=== PATIENT | female | born 1995 | race Caucasian/White ===

== ENCOUNTER 2018-04-06 04:13 | Emergency (ER) | payer OTHER ==
--- NOTE | 2018-04-06 04:23 | EDPHY ---
H & P Stated Complaint: POS UTI/URGENCY,RETENTION,CLOTS Time Seen by Provider: 04/06/18 04:22 HPI/ROS: HPI CHIEF COMPLAINT: Possible UTI. HISTORY OF PRESENT ILLNESS: Patient very pleasant 22-year-old female she is otherwise healthy no significant medical history does not take any daily medications except control presents emergency room with 4 days of urinary frequency, urgency, urinary dysuria. No back pain, no fever, no vomiting. Denies being . Past Medical History: No significant medical history Past Surgical History: No significant surgical history Social History: Denies daily use drugs alcohol tobacco. Family History: Noncontributory ROS REVIEW OF SYSTEMS: A comprehensive 10 point review of systems is otherwise negative aside from elements mentioned in the history of present illness. Exam Constitutional triage nursing summary reviewed, vital signs reviewed, awake/ alert. Eyes normal conjunctivae and sclera, EOMI, PERRLA. HENT normal inspection, atraumatic, moist mucus membranes, no epistaxis, neck supple/ no meningismus, no raccoon eyes. Respiratory clear to auscultation bilaterally, normal breath sounds, no respiratory distress, no wheezing. Cardiovascular rate normal, regular rhythm, no murmur, no edema, distal pulses normal. Gastrointestinal soft, non-tender, no rebound, no guarding, normal bowel sounds, no distension, no pulsatile mass. Genitourinary no CVA tenderness. Musculoskeletal no midline vertebral tenderness, full range of motion, no calf swelling, no tenderness of extremities, no meningismus, good pulses, neurovascularly intact. Skin pink, warm, & dry, no rash, skin atraumatic. Neurologic awake, alert and oriented x 3, AAOx3, moves all 4 extremities equally, motor intact, sensory intact, CN II-XII intact, normal cerebellar, normal vision, normal speech. Psychiatric normal mood/affect. Heme/Lymph/Immune no lymphadenopathy. Differential Diagnosis: Includes but is not limited to in a particular order UTI, pyelonephritis, cystitis, Medical Decision Making: Plan for this patient check UA, urine . Re-evaluation: Urinalysis reviewed shows infection. Not . Keflex and peridium given here in the emergency room. She is hemodynamically stable and afebrile. Nontoxic appearing in no acute distress and safe for discharge. Return precautions discussed with her she understands return emergency develops worsening fever, vomiting questions or concerns. Source: Patient - Personal History LMP (Females 10-55): 22-28 Days Ago Current Tetanus Diphtheria and Acellular Pertussis (TDAP): Yes - Medical/Surgical History Hx Asthma: No Hx Chronic Respiratory Disease: No Hx Diabetes: No Hx Cardiac Disease: No Hx Renal Disease: No Hx Cirrhosis: No Hx Alcoholism: No Hx HIV/AIDS: No Hx Splenectomy or Spleen Trauma: No Other PMH: DENIES - Social History Smoking Status: Never smoked Constitutional: Initial Vital Signs Temperature (C) 36.8 C 04/06/18 04:17 Heart Rate 89 04/06/18 04:17 Respiratory Rate 16 04/06/18 04:17 Blood Pressure 113/86 H 04/06/18 04:17 O2 Sat (%) 96 04/06/18 04:17 O2 Delivery Mode Room Air Allergies/Adverse Reactions: No Known Allergies Allergy (Unverified 04/06/18 04:16) Home Medications: Medication Instructions Recorded Cephalexin [Keflex] 500 mg PO Q6H #28 cap 04/06/18 Phenazopyridine HCl [Pyridium] 200 mg PO TID #15 tab 04/06/18 Medical Decision Making - Data Points Medications Given: Discontinued Medications Cephalexin (Keflex 500 Mg Prepack#4) 1 btl TAKEHOME EDNOW ONE PRN Reason: Protocol Stop: 04/06/18 04:52 Last Admin: 04/06/18 05:11 Dose: 1 btl Cephalexin HCl (Keflex) 500 mg PO EDNOW ONE PRN Reason: Protocol Stop: 04/06/18 04:52 Last Admin: 04/06/18 05:08 Dose: 500 mg Departure - Departure Disposition: Home, Routine, Self-Care Clinical Impression: Urinary tract infection Qualifiers: Urinary tract infection type: acute cystitis Hematuria presence: with hematuria Qualified Code(s): N30.01 - Acute cystitis with hematuria Condition: Good Instructions: Urinary Tract Infection in Women (ED) Additional Instructions: 1. Drink lots of fluids stay well-hydrated 2. Return emergency room if you have worsening symptoms abdominal pain, back pain, fever, vomiting 3. Antibiotics as prescribed. Referrals: NONE *PRIMARY CARE P,. [Primary Care Provider] - As per Instructions Prescriptions: Cephalexin [Keflex] 500 mg PO Q6H #28 cap Phenazopyridine HCl [Pyridium] 200 mg PO TID #15 tab
[2018-04-06] MEDS ORDERED: CEPHALEXIN 500 MG CAP PO ONE (04:51)
[2018-04-06] MEDS ORDERED: CEPHALEXIN 500MG PREPACK#4 BTL TAKEHOME ONE (04:51)
[2018-04-06] MEDS ORDERED: PHENAZOPYRIDINE HCL 200 MG TAB ONE (05:02)
[2018-04-06 05:25] VITALS: BP 118/82
== END 2018-04-06 05:25 | disposition home or self-care (01) ==
DX: N30.01 Acute cystitis with hematuria (principal)